=== PATIENT | female | born 1955 ===

== ENCOUNTER 2017-02-20 11:32 | Emergency (ER) | payer BC ==
--- NOTE | 2017-02-20 12:42 | UC ---
Complaint Female HPI - HPI Summary HPI Summary: Patient presents with urgency, frequency, burning upon urination. Dark colored , cloudy urine with specks of blood. Denies flank pain. Denies diaphoresis and chills. Denies known fever. No abnormal vaginal discharge reported. Otherwise healthy. History of UTI's and kidney stones. She felt the pain about 1 week ago and it has progressively gotten worse. Denies taking anything for the discomfort. She is otherwise healthy and takes no medications. - History Of Current Complaint Chief Complaint: UCGU Stated Complaint: UTI Time Seen by Provider: 02/20/17 11:56 Hx Obtained From: Patient ?: No Onset/Duration: Sudden Onset Timing: Constant Severity Initially: Moderate Severity Currently: Moderate Pain Intensity: 5 Pain Scale Used: 0-10 Numeric Character: Dull, Burning Aggravating Factor(s): Movement Alleviating Factor(s): Position Associated Signs And Symptoms: Positive: Negative - Risk Factors Ovarian Torsion Risk Factor: Reproductive Age - Allergies/Home Medications Allergies/Adverse Reactions: Allergies Allergy/AdvReac Type Severity Reaction Status Date / Time No Known Allergies Allergy Verified 02/20/17 11:47 Home Medications: Home Medications Citalopram TAB* [CeleXA TAB*] 20 mg PO DAILY 02/20/17 [History Confirmed ] PMH/Surg Hx/FS Hx/Imm Hx Previously Healthy: Yes - Surgical History Surgical History: None - Family History Known Family History: Positive: Unknown - Social History Occupation: Employed Full-time Lives: With Family Alcohol Use: Weekly Substance Use Type: None Smoking Status (MU): Former Smoker Review of Systems Constitutional: Negative Skin: Negative Respiratory: Negative Cardiovascular: Negative Gastrointestinal: Negative Genitourinary: Dysuria, Hematuria, Frequency, Urgency Motor: Negative Neurological: Negative Psychological: Negative All Other Systems Reviewed And Are Negative: Yes Physical Exam Triage Information Reviewed: Yes Appearance: Well-Appearing, No Pain Distress, Well-Nourished Vital Signs: Initial Vital Signs Temp 98.2 F 02/20/17 11:49 Pulse 84 02/20/17 11:49 Resp 16 02/20/17 11:49 BP 153/74 02/20/17 11:49 Pulse Ox 100 02/20/17 11:49 Vital Signs Reviewed: Yes Eye Exam: Normal Eyes: Positive: Conjunctiva Clear Neck exam: Normal Neck: Positive: Supple, Nontender, No Lymphadenopathy Respiratory Exam: Normal Respiratory: Positive: Chest non-tender Cardiovascular Exam: Normal Cardiovascular: Positive: RRR Musculoskeletal Exam: Normal Musculoskeletal: Positive: Strength Intact Neurological Exam: Normal Neurological: Positive: Alert Psychological: Positive: Normal Response To Family, Age Appropriate Behavior Skin Exam: Normal Complaint Female Dx - Course Course Of Treatment: UA performed. WBC and leuks seen. Labs WNL. Patient experiencing urgency, frequency and pain on urination. Dark urine noted with blood. No abnormal vaginal discharge or bleeding. No CVA tenderness bilaterally. No previous UTI within last 6 months and no recent Augmentin use. Will treat for uncomplicated UTI and await sensitivities of urine culture. Will call if abx not sensitive to medication. Pyridium given for comfort. Return precautions and follow up with PCP. Nitrofurantoin given as prescription. - Differential Dx/Diagnosis Differential Diagnosis/HQI/PQRI: Pelvic Inflammatory Disease, Sexually Transmitted Disease, Urinary Tract Infection Provider Diagnoses: UTI Discharge - Discharge Plan Condition: Stable Disposition: HOME Prescriptions: Nitrofurantoin Macrocrystals* [Macrodantin*] 100 mg PO BID #10 cap Phenazopyridine TAB* [Pyridium 100 mg TAB*] 100 mg PO TID #12 tab Patient Education Materials: Urinary Tract Infection in Women (ED) Additional Instructions: Dx. Urinary Tract Infection Drink plenty of fluids. Supplement with cranberry or morgan juice. You may also take an over the counter cranberry supplement. If you have any questions about this, you may ask your pharmacist. If your symptoms have not improved in 1-2 days, if you develop fever, sweats or chills, please go to your emergency room, or call your PCP. Antibiotics were prescribed to you. Please take as directed. Supplement with over the counter probiotics on the opposite schedule of your antibiotic to prevent secondary infections. Do not take together as they may counteract each other. Pyridium: This medication is used to treat pain, burning, increased urination, and increased urge to urinate. These symptoms are usually caused by infection, injury, surgery, catheter, or other conditions that irritate the lower urinary tract. Pyridium will treat the symptoms of a urinary tract infection, but this medication does not treat the actual infection. Take the antibiotic that your doctor prescribes to treat your infection. Pyridium will most likely darken the color of your urine to an orange or red color. This is a normal effect and is not cause for alarm unless you have other symptoms such as pale or yellowed skin, fever, stomach pain, nausea, and vomiting. Darkened urine may also cause stains to your underwear, which may or may not be removed by laundering. It can also permanently stain soft contact lenses, and you should not wear them while taking this medicine.
== END 2017-02-20 12:37 | disposition home or self-care (01) ==
LOC: UCEAST 11:32
DX: Z87.891 Personal history of nicotine dependence (principal); N39.0 Urinary tract infection, site not specified
CPT/HCPCS: 81003; 87086; 99202; G0463